=== PATIENT | male | born 1960 | race Hispanic/Latino ===

== ENCOUNTER → 2018-07-14 | Outpatient (CLI) | payer OTHER ==
--- NOTE | 2018-07-14 11:08 | RAD ---
EXAM DESCRIPTION: Knee,Right Complete CLINICAL HISTORY: RIGHT PAIN M25.561 COMPARISON: None. IMPRESSION: 4 standing views of the right knee show no acute fracture, focal bone destruction, or joint dislocation. Small posterior superior osteophyte of the patella is seen consistent with mild osteoarthritic changes. Moderate increased density in the suprapatellar bursa is seen consistent with moderate joint effusion. Electronically signed by: Wil Main MD 07/14/2018 11:06 AM [facility]
--- NOTE | 2018-07-14 11:19 | RAD ---
EXAM DESCRIPTION: Pelvis CLINICAL HISTORY: 57 years Male, PAIN IN RIGHT HIP. M25.551 COMPARISON: None FINDINGS: Single view of the bony pelvis demonstrates the superior and inferior pubic rami intact and minimal degenerative disease involving each hip. The SI joints are intact. No fracture or deformity. Pelvic phleboliths on the right are evident. Small calcifications overlie the right side of the scrotum and the penile shaft angled could represent small phleboliths either within the inguinal region or along the course of the right spermatic cord. Small stones within the urethra within a diverticulum could not be entirely excluded. This could represent overlying foreign material on the skin or within any padding or clothing overlying the patient. IMPRESSION: Essentially normal bony pelvis with mild degenerative changes and pelvic phleboliths. Additional small calcifications overlie the right superior scrotum and penile shaft, of uncertain significance. Electronically signed by: Don Keane MD 07/14/2018 11:16 AM [facility]
== END ==
LOC: RAD 09:31
PROVIDERS: ATTEND Orthopaedic Surgery
DX: M25.561 Pain in right knee (principal); M25.551 Pain in right hip

== ENCOUNTER → 2018-09-08 | Outpatient (CLI) | payer OTHER ==
--- NOTE | 2018-09-08 13:03 | MRI ---
MRI right knee without contrast INDICATION: Knee and leg pain sprain swelling twisting injury 2 months ago stepping off ladder TECHNIQUE: Noncontrast MR imaging right knee standard protocol FINDINGS: Small joint effusion. Tiny Ulloa's cyst. Multifocal chondral fissuring in the patella grade 4 in the medial facet and grade 3 across the apex and lateral facet. Mild lateral patellar tilt without subluxation or dislocation. Minimal chondrosis of the trochlea. There is a diffuse free edge and undersurface tear of the body and posterior horn medial meniscus with mild volume loss. Probable small flap posteriorly on sagittal series 401 image 12. Cruciate ligaments are intact. Extensor tendons are intact. Very small area of undersurface fraying posterior horn lateral meniscus as well. No advanced arthrosis of the tibiofemoral compartments IMPRESSION: Diffuse medial meniscal tear relatively horizontal along the undersurface with free edge truncation mild volume loss body and posterior Multifocal patellofemoral chondrosis up to grade 4 medial patellar facet Mild lateral patellar tilt Small joint effusion and Ulloa's cyst Electronically signed by: Benja Rice MD 09/08/2018 1:00 PM CDT
== END ==
LOC: MRI 09:18
PROVIDERS: ATTEND Orthopaedic Surgery
DX: S83.241A Other tear of medial meniscus, current injury, right knee, initial encounter (principal); M71.21 Synovial cyst of popliteal space [Baker], right knee

== ENCOUNTER → 2019-12-28 | Outpatient (CLI) | payer BC ==
--- NOTE | 2019-12-28 13:49 | RAD ---
EXAM DESCRIPTION: Knee,Right 1 or 2 Views CLINICAL HISTORY: 59 years Male, PAIN IN RIGHT KNEE 45 DEGREE COMPARISON: September 08, 2018 Findings: One views/radiographs Location: Right knee No acute fracture or dislocation. Joint spaces are maintained. No focal soft tissue swelling. IMPRESSION: No evidence of acute process in the right knee. Electronically signed by: Mauricio Zamora MD 12/28/2019 1:47 PM CDT
--- NOTE | 2019-12-28 13:51 | RAD ---
EXAM DESCRIPTION: Pelvis CLINICAL HISTORY: 59 years Male, PAIN IN RIGHT HIP JOINT COMPARISON: July 14, 2018 FINDINGS: Single view of the pelvis demonstrates symmetric appearance of the hips with very minimal degenerative change. The joint space is maintained bilaterally. The bones are normally mineralized. No fracture or dislocation or destructive process noted. The right femoral head and neck and trochanteric region are normal. IMPRESSION: Essentially negative pelvis one view with no specific abnormality right hip noted. Electronically signed by: Don Keane MD 12/28/2019 1:49 PM CDT
== END ==
LOC: RAD 08:16
PROVIDERS: ATTEND Orthopaedic Surgery
DX: M25.551 Pain in right hip (principal); M25.561 Pain in right knee